=== PATIENT | female | born 1965 | race Caucasian/White ===

== ENCOUNTER 2020-01-01 12:50 | Outpatient (REF) | payer MEDICARE, MEDICAID, SELFPAY | END 2020-01-01 12:51 | disposition home or self-care (01) | LOC: HO.HMGCLDS 12:50 | PROVIDERS: PCP Internal Medicine; Visit Provider Internal Medicine | DX: Z13.89 Encounter for screening for other disorder (principal) ==

== ENCOUNTER 2020-03-25 11:58 | Outpatient (REF) | payer MEDICARE, MEDICAID, SELFPAY ==
--- NOTE | 2020-03-25 12:06 | XR_ITS ---
EXAMINATION: CHEST X-RAY CLINICAL INFORMATION: Shortness of breath COMPARISON: Previous chest x-rays most recent November 2006 TECHNIQUE: Two-view chest FINDINGS: The cardiac and mediastinal contours are stable. The lungs are clear. The lungs appear well inflated. There is no pleural effusion or pneumothorax. There are multiple old bilateral rib fractures. There are multiple thoracic vertebral body compression fractures and L1 compression fracture as described below. XR/XR chest 2V IMPRESSION: No evidence for acute disease in the chest. Well-inflated lungs. Increased thoracic kyphosis and multiple compression fractures. EXAMINATION: Thoracic spine x-ray CLINICAL INFORMATION: Shortness of breath COMPARISON: Chest CT and chest x-ray 2006 and lumbar spine x-rays most recent October 2018 TECHNIQUE: 3 views of the thoracic spine FINDINGS: There are compression fractures and post vertebroplasty changes of the T7 and T8 vertebral bodies. There is a moderate compression fracture of the T6 vertebral body. There is a moderate compression fracture of the T9 vertebral body. There is a compression fracture and post vertebroplasty change of the L1 vertebral body. There is increased thoracic kyphosis. IMPRESSION: Multiple thoracic vertebral body compression fractures and L1 vertebral body compression fracture.
--- NOTE | 2020-03-25 12:07 | XR_ITS ---
EXAMINATION: CHEST X-RAY CLINICAL INFORMATION: Shortness of breath COMPARISON: Previous chest x-rays most recent November 2006 TECHNIQUE: Two-view chest FINDINGS: The cardiac and mediastinal contours are stable. The lungs are clear. The lungs appear well inflated. There is no pleural effusion or pneumothorax. There are multiple old bilateral rib fractures. There are multiple thoracic vertebral body compression fractures and L1 compression fracture as described below. XR/XR thoracic spine 2V IMPRESSION: No evidence for acute disease in the chest. Well-inflated lungs. Increased thoracic kyphosis and multiple compression fractures. EXAMINATION: Thoracic spine x-ray CLINICAL INFORMATION: Shortness of breath COMPARISON: Chest CT and chest x-ray 2006 and lumbar spine x-rays most recent October 2018 TECHNIQUE: 3 views of the thoracic spine FINDINGS: There are compression fractures and post vertebroplasty changes of the T7 and T8 vertebral bodies. There is a moderate compression fracture of the T6 vertebral body. There is a moderate compression fracture of the T9 vertebral body. There is a compression fracture and post vertebroplasty change of the L1 vertebral body. There is increased thoracic kyphosis. IMPRESSION: Multiple thoracic vertebral body compression fractures and L1 vertebral body compression fracture.
== END 2020-03-25 11:59 | disposition home or self-care (01) ==
LOC: HO.XRAY 11:58
PROVIDERS: Absent Provider Internal Medicine; PCP Internal Medicine; Visit Provider Physical Medicine & Rehabilitation
DX: R06.02 Shortness of breath (principal)
CPT/HCPCS: 71046; 72070

== ENCOUNTER 2020-05-17 13:26 | Outpatient (REF) | payer OTHER, MEDICAID, MEDICARE, SELFPAY ==
--- NOTE | ~2020-05-17 | MR_ITS ---
EXAMINATION: MR THORACIC SPINE WITHOUT CONTRAST CLINICAL INFORMATION: Wedge compression fracture of T5-T6 and T7-T8. COMPARISON: Thoracic spine radiographs from 03/25/2020. Lumbar spine radiographs from 10/08/2018. TECHNIQUE: MRI of the thoracic spine was obtained using routine sequences without contrast. FINDINGS: There is transitional vertebral anatomy. Although not included on this exam, there appears to be lumbarization of S1. Counting from the skull base, vertebral augmentation cement is noted within the T8, T9, and L2 vertebral bodies (previously labeled as T7, T8, and L1). Chronic compression deformities of the T8 and T9 vertebral bodies with 35% and 10% loss of anterior body heights respectively. No residual marrow edema. There are also anterior wedge deformities of T7 and T10 with 60% and 40% loss of anterior body heights respectively. Minimal marrow edema persists along the superior endplate of T7. Moderate marrow edema throughout the T10 vertebral body. There is mild marrow edema within the left-sided posterior elements and spinous processes of T7 and T9. Minimal 0.1 cm retropulsion of the posterior body wall of T10. Accentuated kyphosis of the thoracic spine centered on T7. No additional suspicious marrow edema. The remaining thoracic vertebral body heights are maintained. Chronic central depressions of the superior endplates of L4 and L5. No significant abnormalities of the thoracic spinal cord. No significant abnormalities of the paraspinal musculature. Limited evaluation of the intrathoracic structures without significant abnormalities. The descending thoracic aorta is of normal contour and caliber. AXIAL SPINAL LEVELS: Mild posterior disc herniations at T7-T8, T9-T10, T12-L1, and L1-L2. Mild to moderate degenerative facet arthropathy, most notably of the lower thoracic spine. No neural foraminal or spinal canal stenosis. MR/MR thoracic spine wo con IMPRESSION: Transitional vertebral anatomy. Chronic from the skull base, vertebral augmentation cement is noted within the T8, T9, and L2 vertebral bodies (previously labeled as T7, T8, and L1). There is lumbarization of S1. Detailed level verification is recommended prior to any procedures. There are anterior wedge deformities of the T7 and T10 vertebral bodies. Moderate persistent marrow edema within the T10 vertebral body. Minimal residual marrow edema along the superior endplate of T7. There is also mild marrow edema within the left-sided posterior elements of T7 and T9. No spinal canal or neural foraminal stenosis.
[2020-05-17 14:55] LABS: Anion Gap 14 (12-20); Blood Urea Nitrogen 11 mg/dL (9-16); Calcium 9.4 mg/dL (8.4-10.2); Carbon Dioxide 29 mmol/L (22-29); Chloride 102 mmol/L (96-108); Estimated Glomerular Filt Rate > 60; Glucose Random 89 mg/dL (60-115); Potassium 4.6 mmol/L (3.3-5.1); Sodium 140 mmol/L (135-145)
== END 2020-05-17 13:27 | disposition home or self-care (01) ==
LOC: HO.MRI 13:26
PROVIDERS: PCP Internal Medicine; Visit Provider Physical Medicine & Rehabilitation
DX: S22.050D Wedge compression fracture of T5-T6 vertebra, subsequent encounter for fracture with routine healing (principal); S22.060D Wedge compression fracture of T7-T8 vertebra, subsequent encounter for fracture with routine healing
CPT/HCPCS: 36415; 72146; 80048

== ENCOUNTER 2021-04-04 10:25 | Outpatient (REF) | payer MEDICARE, MEDICAID, SELFPAY ==
[2021-04-04 12:07] LABS: Alanine Aminotransferase 53 U/L (0-31); Albumin Level 4.1 g/dL (3.5-5.0); Alkaline Phosphatase 148 U/L (39-117); Aspartate Amino Transferase 46 U/L (5-31); Bilirubin Direct < 0.2 mg/dL (0.0-0.5); Bilirubin Total 0.3 mg/dL (0.0-1.0); Total Protein 6.8 g/dL (6.5-8.0)
[2021-04-04 12:36] LABS: Vitamin D 25-OH Total 64.5 ng/mL (>30)
[2021-04-07 15:17] LABS: TS Negative Control Passed; TS Panel A 4; TS Panel B 6; TS Positive Control Passed; TSpotTB Borderline (Negative)
== END 2021-04-04 10:26 | disposition home or self-care (01) ==
LOC: HO.HMGCLDS 10:25
PROVIDERS: Visit Provider Internal Medicine
DX: Z11.1 Encounter for screening for respiratory tuberculosis (principal); E55.9 Vitamin D deficiency, unspecified; R74.8 Abnormal levels of other serum enzymes
CPT/HCPCS: 36415; 80076; 82306; 86481

== ENCOUNTER 2021-08-04 15:44 | Emergency (ER) | payer MEDICARE, MEDICAID, SELFPAY ==
--- NOTE | ~2021-08-04 | XR_ITS ---
EXAMINATION: XR FOOT, RIGHT CLINICAL INFORMATION: Right lateral metatarsal pain COMPARISON: None TECHNIQUE: AP, lateral, and oblique views of the right foot. FINDINGS: The bones and soft tissues are normal. No fracture. Alignment is anatomic. Joint spaces are maintained. XR/XR foot RT min 3V IMPRESSION: No acute bony abnormality.
[2021-08-04 15:59] VITALS: BP 123/67; PULSE 90; RESP 16; TEMP 36.6; O2SAT 99; BMI 18.8
--- NOTE | 2021-08-04 18:26 | ED.GENADULT ---
HPI - General Adult General Chief complaint: Skin/Abscess/Foreign Body Stated complaint: R foot wound Time Seen by Provider: 08/04/21 16:23 Source: patient Mode of arrival: other ( uses cane at baseline) Limitations: no limitations History of Present Illness HPI narrative: 56-year-old female who appears older than her stated age presents for pain and swelling to right foot that started last night. no trauma. Patient is concerned because she has redness and swelling on her right lateral foot with a blood blister under her right pinky toe. No fevers. Related Data Previous Rx's Medication Instructions Recorded cephalexin 500 mg capsule 500 mg PO QID 7 Days #28 cap 08/04/21 Allergies Allergy/AdvReac Type Severity Reaction Status Date / Time acetaminophen [From PERCOCET] Allergy Unknown HIVES Unverified 11/19/19 15:03 gabapentin Allergy Unknown SWELLING Unverified 11/19/19 15:03 iodine Allergy Unknown IVP Unverified 11/19/19 15:03 CONTRAST codeine Allergy Itching Verified 08/04/21 16:02 Review of Systems Constitutional: Constitutional: Denies body ache(s), Denies chills, Denies fatigue, Denies fever(s), Denies headache(s), Denies malaise and Denies weakness Eyes: Eyes: Denies diplopia ENT: Denies vertigo, Denies dizziness, Denies headache(s) and Denies throat swelling Cardiovascular: Cardiovascular: Denies chest pain, Denies syncope, Denies leg edema, Denies lightheadedness, Denies Loss of Consciousness, Denies palpitations and Denies dyspnea Respiratory: Respiratory: Denies chest congestion, Denies cough and Denies dyspnea Gastrointestinal: Gastrointestinal: Denies abdominal pain, Denies hematochezia, Denies constipation, Denies diarrhea and Denies vomiting Musculoskeletal: Musculoskeletal: Reports other ( Foot pain) Integumentary/Breasts: Skin/Breast: Reports erythema, Reports skin pain and Reports skin swelling Neurologic: Denies confusion, Denies vertigo, Denies dizziness, Denies syncope, Denies headache(s) and Denies weakness Psychiatric: Psychiatric: Denies anxiety, Denies confusion and Denies depression Endocrine: Endocrine: Denies fatigue and Denies palpitations Allergic/Immunologic: Allergic/Immunologic: Denies throat swelling PMF Social History Social History Advance Directives: No Advance Directives Information Provided: Yes Physical Exam ED Vital Signs: Vital Signs - 24 hr 08/04/21 15:59 Temperature 97.8 F Pulse Rate 90 Respiratory Rate 16 Blood Pressure 123/67 Pulse Oximetry 99 BMI result Body Mass Index 18.8 Const General: No confusion Nutritional Appearance: well nourished Orientation/consciousness: No confusion Limitations: no limitations Eyes Conjunctivae: conjunctivae normal Pupils: Equal, round and reactive pupils present EOM: EOMs intact bilaterally Neck Neck: Yes full ROM, Yes no lymphadenopathy and Yes supple Resp Effort & Inspection: normal respiratory effort and able to speak in complete sentences Auscultation: clear to auscultation bilaterally, no crackles, no rales, no rhonchi and no wheezes Cardio Rate: regular rate Rhythm: regular rhythm Heart sounds: S1 normal heart sound present and S2 normal heart sound present GI Inspection: Yes normal to inspection Palpation (GI): Soft to palpation, nontender, no guarding and not rigid Percussion: Yes normal to percussion Auscultation: normal bowel sounds Skin Other: redness, swelling, warmth to right lateral foot with 1 cm blood blister under right pinky toe Neuro General: No confusion Cranial nerves: Yes Equal, round and reactive pupils present Extrem Right lower extremity: full ROM, normal capillary refill, no joint enlargement and foot Details: normal capillary refill, tenderness Location: of the lateral foot Location: distally, toes with normal ROM and warmth; Negative for no edema, no abrasion, no laceration and no ecchymosis; No no cyanosis and no edema Psych Appearance: grossly normal Affect: normal affect Attitude: cooperative Thought process: Normal thought process present Course Course Course Narrative: a 56-year-old female presents for atraumatic right foot pain. On exam, patient has intact lower extremity sensation, pulses, motor strength. Patient has a 1 cm blood blister under right pinky toe on plantar surface, patient is tender over the lateral aspect of her right foot, skin is red and warm. FINDINGS: The bones and soft tissues are normal. No fracture. Alignment is anatomic. Joint spaces are maintained.? XR/XR foot RT min 3V IMPRESSION: No acute bony abnormality. Will treat as a cellulitis. Counseled patient to return if symptoms are not resolving within the next 3 days. Discharge Plan Discharge Clinical Impression: Cellulitis Patient Disposition: Home, Self-Care Instructions: Cellulitis (ED) Additional Instructions: please use your walking boot if it helps with your pain. You do not have any fracture in your foot. I think this is a cellulitis. If this does not get better by the end of the weekend, please return to be seen on Saturday. Please return sooner if you have worsening pain, fevers, or any new or worsening symptoms Prescriptions: New cephalexin 500 mg capsule 500 mg PO QID 7 Days Qty: 28 0RF
== END 2021-08-04 18:57 | disposition home or self-care (01) ==
PROVIDERS: Emergency Provider Internal Medicine; PCP Internal Medicine
DX: L03.115 Cellulitis of right lower limb (principal)
CPT/HCPCS: 73630; 99282; 99283

== ENCOUNTER 2021-09-09 14:05 | Emergency (ER) | payer OTHER, SELFPAY ==
[2021-09-09 14:25] VITALS: BP 101/50; PULSE 81; RESP 18; TEMP 36.8; O2SAT 97; BMI 18.8
[2021-09-09 15:24] LABS: Hemoglobin 10.3 g/dl (12.0-16.0); Mean Corpuscular HGB Conc 32.2 g/dl (31.0-35.0); Mean Corpuscular Hemoglobin 30.4 pg (27.0-33.0); Mean Corpuscular Volume 94.4 fL (80.0-98.0); Mean Platelet Volume 9.3 fL (9.4-12.3); Platelet Count 299 X10*3/uL (160-400); Red Blood Count 3.39 X10*6/uL (4.20-5.50); Red Cell Distribution Width 14.1 % (11.0-16.0); White Blood Count 7.4 X10*3/uL (4.8-10.8)
[2021-09-09 15:37] LABS: Anion Gap 10 (12-20); Blood Urea Nitrogen 9 mg/dL (9-16); Calcium 8.9 mg/dL (8.4-10.2); Carbon Dioxide 28 mmol/L (22-29); Chloride 105 mmol/L (96-108); Creatinine Clr Calc Pharmacy 57.7; Estimated Glomerular Filt Rate > 60; Glucose Random 80 mg/dL (60-115); Potassium 4.9 mmol/L (3.3-5.1); Sodium 138 mmol/L (135-145)
[2021-09-09 15:42] LABS: B Type Natriuretic Peptide 30 pg/mL (<100)
== END 2021-09-09 17:35 | disposition left against medical advice (07) ==
PROVIDERS: Emergency Provider Emergency Medicine; PCP Internal Medicine
DX: L03.116 Cellulitis of left lower limb (principal)
CPT/HCPCS: 36415; 80048; 83880; 85027; 99281; 99282; 99283

== ENCOUNTER 2021-10-27 15:25 | Outpatient (REF) | payer MEDICARE, MEDICAID, SELFPAY ==
[2021-10-27 16:28] LABS: MANUAL DIFF FLAG NO
[2021-10-27 16:33] LABS: Basophils Absolute Auto 0.1 X10*3/uL (0.0-0.2); Basophils Percent Auto 0.8 % (0-2); Eosinophils Absolute Auto 0.2 X10*3/uL (0.0-0.4); Eosinophils Percent Auto 3.8 % (0-4); Hematocrit 33.4 % (37.0-47.0); Hemoglobin 10.8 g/dl (12.0-16.0); Imm Gran Abs Auto 0.02 X10*3/uL (0.00-0.03); Imm Gran Pct Auto 0.3 % (0.0-0.4); Lymphocytes Absolute Auto 2.7 X10*3/uL (1.2-4.9); Lymphocytes Percent Auto 41.7 % (20-40); Mean Corpuscular HGB Conc 32.3 g/dl (31.0-35.0); Mean Corpuscular Hemoglobin 30.3 pg (27.0-33.0); Mean Corpuscular Volume 93.8 fL (80.0-98.0); Mean Platelet Volume 9.8 fL (9.4-12.3); Monocytes Absolute Auto 0.4 X10*3/uL (0.1-1.2); Monocytes Percent Auto 6.4 % (2-11); Platelet Count 277 X10*3/uL (160-400); Red Blood Count 3.56 X10*6/uL (4.20-5.50); Red Cell Distribution Width 13.7 % (11.0-16.0); White Blood Count 6.4 X10*3/uL (4.8-10.8)
[2021-10-27 17:30] LABS: Erythrocyte Sedimentation Rate 8 MM/HR (0-20)
== END 2021-10-27 15:26 | disposition home or self-care (01) ==
LOC: HO.HMGCLDS 15:25
PROVIDERS: Visit Provider Physical Medicine & Rehabilitation
DX: L03.115 Cellulitis of right lower limb (principal)
CPT/HCPCS: 36415; 85025; 85652; 86140

== ENCOUNTER 2022-02-15 10:18 | Outpatient (REF) | payer MEDICARE, MEDICAID, SELFPAY ==
[2022-02-15 14:05] LABS: Alanine Aminotransferase 13 U/L (0-31); Albumin Level 4.2 g/dL (3.5-5.0); Alkaline Phosphatase 126 U/L (39-117); Anion Gap 10 (12-20); Aspartate Amino Transferase 18 U/L (5-31); Bilirubin Total 0.4 mg/dL (0.0-1.0); Blood Urea Nitrogen 11 mg/dL (9-16); Calcium 9.3 mg/dL (8.4-10.2); Carbon Dioxide 29 mmol/L (22-29); Chloride 105 mmol/L (96-108); Cholesterol 133 mg/dL; Estimated Glomerular Filt Rate > 60; Glucose Random 77 mg/dL (60-115); HDL Cholesterol 37 mg/dL; LDL Cholesterol Calculated 82 mg/dl; Potassium 4.7 mmol/L (3.3-5.1); Sodium 139 mmol/L (135-145); Triglycerides 73 mg/dL; Vitamin D 25-OH Total 53.1 ng/mL (>30)
[2022-02-15 14:11] LABS: Vitamin B12 429 pg/mL (200-900)
== END 2022-02-15 10:19 | disposition home or self-care (01) ==
LOC: HO.HMGCLDS 10:18
PROVIDERS: PCP Internal Medicine; Visit Provider Internal Medicine
DX: E78.2 Mixed hyperlipidemia (principal); E53.9 Vitamin B deficiency, unspecified; E55.9 Vitamin D deficiency, unspecified
CPT/HCPCS: 36415; 80053; 80061; 82306; 82607

== ENCOUNTER 2022-05-21 12:45 | Outpatient (REF) | payer MEDICARE, MEDICAID, SELFPAY ==
--- NOTE | ~2022-05-21 | XR_ITS ---
EXAMINATION: XR LUMBOSACRAL SPINE CLINICAL INFORMATION: Radiculopathy. Lumbar fusion. COMPARISON: None available. TECHNIQUE: Three views of the lumbosacral spine. FINDINGS: There is normal lumbar lordosis with cages at the L4-L5 disc level for disc fusion. There is cement augmentation along the L1 vertebra. No compression fracture, lytic or sclerotic process seen. The paravertebral soft tissues are normal. XR/XR lumbar spine 2-3V IMPRESSION: 1. L4-L5 disc fusion with cages. 2. Cement augmentation of L1 vertebra. No acute fracture or lytic process seen.
== END 2022-05-21 12:46 | disposition home or self-care (01) ==
LOC: HO.HMGCX 12:45
PROVIDERS: PCP Internal Medicine; Visit Provider Physical Medicine & Rehabilitation
DX: M54.16 Radiculopathy, lumbar region (principal); M43.26 Fusion of spine, lumbar region
CPT/HCPCS: 72100

== ENCOUNTER 2022-06-14 11:11 | Outpatient (REF) | payer MEDICARE, MEDICAID, SELFPAY ==
--- NOTE | ~2022-06-14 | XR_ITS ---
EXAMINATION: XR BILATERAL HIPS WITH AP PELVIS CLINICAL INFORMATION: Right hip, left hip pain. COMPARISON: None available. TECHNIQUE: AP view of the pelvis and 2 views of each hip were obtained. FINDINGS: AP PELVIS: There is normal symmetry of both hip joints and SI joints. No visible acute fracture, dislocation seen. There are cages at L4-L5 disc for fusion. RIGHT HIP: There is maintained right hip joint space without bony erosive changes. No visible acute fracture, dislocation or subluxation seen. The soft tissues are normal. LEFT HIP: The left hip joint space is maintained. No bony erosive changes. No spurring. No loose bodies or soft tissue abnormality. XR/XR hips AKBAR min 3V IMPRESSION: Unremarkable AP pelvis and bilateral hips.
== END 2022-06-14 11:12 | disposition home or self-care (01) ==
LOC: HO.HMGCX 11:11
PROVIDERS: PCP Internal Medicine; Visit Provider Physical Medicine & Rehabilitation
DX: M25.551 Pain in right hip (principal); M25.552 Pain in left hip
CPT/HCPCS: 73522

== ENCOUNTER 2022-10-04 11:52 | Emergency (ER) | payer MEDICARE, MEDICAID, SELFPAY ==
--- NOTE | ~2022-10-04 | XR_ITS ---
EXAMINATION: XR THORACIC SPINE CLINICAL INFORMATION: Pain. History of prior surgeries. COMPARISON: March 25, 2020 and MRI of May 17, 2020 TECHNIQUE: AP lateral and swimmer's views of the thoracic spine. FINDINGS: Patient is status post previous kyphoplasty at the T7, T8, and L1 vertebral body levels. Since prior study there has been a superior endplate compression fracture of T12 without significant loss of height. There also been central endplate compression fractures/Schmorl's nodes of T10. Stable wedge fractures are seen at the T6 and T9 vertebral body levels. Kyphosis is present. Old healed bilateral rib fractures evident. XR/XR thoracic spine 3V IMPRESSION: Interval development of fractures without significant loss of height of T10 and T12 since prior examinations of March 25, 2020 and May 17, 2020.
--- NOTE | 2022-10-04 11:58 | ED_ITS ---
HPI - General Adult General Chief complaint: Back Pain/Injury Stated complaint: Severe Back Pain Time Seen by Provider: 10/04/22 12:10 Source: patient, RN notes reviewed and old records reviewed Mode of arrival: ambulatory History of Present Illness HPI narrative: 57-year-old female with past medical history of chronic back pain s/p kyphoplasty, on multiple medications followed by pain management, presenting to the ED complaining of acute on chronic thoracic back pain x 5 days. Patient states feels like her vertebrae is out of place/slipped. Denies known injury, trauma/fall or heavy lifting. Denies radiation of pain down lower extremities, numbness/tingling, weakness, urinary incontinence/retention, fever. Patient takes Oxycodone, Soma, Levorphanol, and Belbuca regularly, without relief. States called her pain management doctor however was not able to get in until the . Related Data Previous Rx's Medication Instructions Recorded cephalexin 500 mg capsule 500 mg PO QID 7 days #28 caps 08/04/21 lidocaine 5 % topical patch 1 patch topical DAILY PRN pain #30 10/04/22 (Lidoderm) ea prednisone 20 mg tablet 40 mg PO DAILY 5 days #10 tabs 10/04/22 Allergies Allergy/AdvReac Type Severity Reaction Status Date / Time acetaminophen [From PERCOCET] Allergy Unknown HIVES Verified 10/04/22 11:59 gabapentin Allergy Unknown SWELLING Verified 10/04/22 11:59 iodine Allergy Unknown IVP Verified 10/04/22 11:59 CONTRAST codeine Allergy Itching Verified 10/04/22 11:59 Review of Systems Review of Systems: Constitutional: No Fever, No Chills ENT/Mouth: No Ear Pain, No Nasal Congestion, No sore throat, No Rhinorrhea, No S wallowing Difficulty Cardiovascular: No Chest Pain, No SOB Respiratory: No Cough, No Sputum, No Wheezing Gastrointestinal: No Nausea, No Vomiting, No Abdominal pain Genitourinary: No Dysuria, No Urinary Frequency, No Hematuria, No Urinary Incontinence/retention, No Flank Pain Musculoskeletal: + joint pain, No Myalgias, No Joint Swelling Skin: No Skin Lesions, No rash Neuro: No Weakness, No Numbness, No Paresthesias Yes all other systems are reviewed and are negative Constitutional: Constitutional: Reports as per HPI Neurologic: Denies Sensory deficit (Neuro) PMFSH Past Medical History Attestation statement: The following information was validated with the patient. Source: old records reviewed Social History Social History Advance Directives: No Advance Directives Information Provided: No Physical Exam ED Vital Signs: Vital Signs - 24 hr 10/04/22 12:00 Temperature 98 F Pulse Rate 83 Respiratory Rate 19 Blood Pressure 123/82 Pulse Oximetry 99 Oxygen Delivery Method Room Air BMI result Body Mass Index 18.3 Const General: cooperative, healthy appearing and no acute distress Orientation/consciousness: patient oriented x3 Limitations: no limitations HENMT Head: Yes normal to inspection and Yes atraumatic Ears: hearing grossly normal bilaterally General nose exam: Normal external nose present Face and sinus: Yes normal facial exam Eyes General: appearance normal, both eyes and all related structures EOM: EOMs intact bilaterally Neck Neck: Yes normal visual inspection and Yes no meningeal signs Resp Effort & Inspection: normal respiratory effort and no respiratory distress Cardio Rate: regular rate Peripheral pulses: Peripheral pulses 2+ throughout GI Inspection: Yes normal to inspection Palpation (GI): Soft to palpation, nontender, no guarding and not rigid General: Yes no CVA tenderness Back/Spine/Pelvis Other: No midline cervical/thoracic/lumbar spinous tenderness/step-off or deformity. + bilateral thoracic paraspinal/MSK tenderness to palpation reproducing subjective complaint. No flail chest/evidence of trauma or erythema Back: no CVA tenderness Skin Rashes: no rashes Wounds: no wounds Neuro Other: Strength intact throughout. No saddle anesthesia. Sensation intact to light touch. Neurovascular intact distally General: patient oriented x3, gait normal (Ambulating with slow steady gait with cane), tone normal, moves all extremities and no meningeal signs Gait exam (Neuro): Normal gait present Motor exam (neuro): 5/5 motor strength present throughout and Normal motor muscle tone present throughout Sensory Exam: No Sensory deficit (Neuro) Extrem General: Yes normal to inspection Course Course Course Narrative: This is a rapid medical exam: Additional HPI, ROS, PE not included below will be deferred to primary provider. Patient is a 57-year-old female presenting to the emergency department with complaint of thoracic back pain since Saturday. Patient denies fall or other trauma. History of surgery at L4/L5 with subsequent kyphoplasties. Denies any numbness or tingling to extremities. Has taken prescribed oxycodone, soma, and muscle relaxers at home without relief. Plan: x-ray XR thoracic spine 3V IMPRESSION: Interval development of fractures without significant loss of height of T10 and T12 since prior examinations of March 25, 2020 and May 17, 2020. >Results discussed with patient, requesting prednisone, Lidoderm patch, and discharge has an appointment at 3:30PM. Discussed worrisome signs and symptoms and strict return precautions, and when to return to the emergency department. They verbalized understanding and feel safe for discharge at this time. Recommended close follow-up with pain management and MRI outpatient Medications Administered Discontinued Medications Generic Name Dose Route Start Last Admin Trade Name Freq PRN Reason Stop Dose Admin Lidocaine 1 patch 10/04/22 12:39 10/04/22 12:46 Lidocaine 4 % Patch Adh..Patch TRANSDERMA 10/04/22 12:40 1 patch ONCE ONE Administration Protocol Medical Decision Making Medical Decision Making MDM Narrative: 57-year-old female with past medical history of chronic back pain s/p kyphoplasty, on multiple medications followed by pain management, presenting to the ED complaining of acute on chronic thoracic back pain x 5 days. On exam vital signs stable, NAD, nontoxic appearing, physical exam as above, no midline spinous tenderness through or red flag symptoms, ambulating with slow steady gait. No evidence of trauma. No saddle anesthesia. Concern for acute on chronic back pain vs disc herniation vs MSK pain/strain/past pain. Low suspicion for cauda equina/cord compression, epidural abscess, dissection or renal stone Plan: X-ray, Lidoderm patch Discussed with patient she is on multiple medications will not be given any additional opiates at this time Please refer to course for remaining clinical decision making, interpretation of labs/imaging results, and discussions with consultants and/or family members. Differential Diagnosis Differential Diagnoses: The differential diagnosis associated with the presentation includes As above Admission/Observation Consideration of admission/observation: Escalation of care including admission/observation considered Independent Interpretation I performed an independent interpretation of an: Plain X-Ray Radiology Impression Discussion of test interpretation with radiology: I have reviewed the radiologist's reading. External Record Review External record reviewed: Inpatient record, Office record, Outpatient record, Prior outpatient labs, Prior outpatient radiology, Primary care record and Outside ED record Tests considered The following testing was considered but not selected: As above Prescription Management I considered prescription management with: Pain Medication Discharge Plan Discharge Clinical Impression: T12 compression fracture, Compression fracture of T10 vertebra Patient Disposition: Home, Self-Care Instructions: Vertebral Compression Fracture (ED) Additional Instructions: Continue taking your current prescribed pain medications and muscle relaxers Your x-ray does show new compression fractures of T10 and T12 which are new from prior exams from 2020 Prednisone as a steroid which did help with pain/inflammation, take as prescribed In addition use Lidoderm patches Please call your PCP and pain management doctor for close follow-up, you will likely need an MRI Prescriptions: New lidocaine [Lidoderm] 5 % adhesive patch,medicated 1 patch topical DAILY MDD remove after 12 hours PRN (Reason: pain) Qty: 30 0RF Rx Instructions: leave on most painful area for up to 12 hrs prednisone 20 mg tablet 40 mg PO DAILY 5 Days Qty: 10 0RF No Action cephalexin 500 mg capsule 500 mg PO QID 7 Days Qty: 28 0RF Referrals: Samantha Bermudez MD [Primary Care Provider] - 5 days Interventions: ED Discharge Assessment Last Done: 10/04/22 14:39 Discharge Date/Time: 10/04/22 14:41
[2022-10-04 12:00] VITALS: BP 123/82; PULSE 83; RESP 19; TEMP 36.6; O2SAT 99; BMI 18.3
[2022-10-04] MEDS: Lidocaine 4 % Patch ADH..PATCH 1 PATCH TRANSDERMA (12:46)
== END 2022-10-04 14:41 | disposition home or self-care (01) ==
PROVIDERS: Emergency Provider Student in an Organized Health Care Education/Training Program; PCP Internal Medicine
DX: M48.54XA Collapsed vertebra, not elsewhere classified, thoracic region, initial encounter for fracture (principal); Z79.899 Other long term (current) drug therapy
CPT/HCPCS: 72072; 99283

== ENCOUNTER 2023-10-15 13:41 | Outpatient (REF) | payer MEDICARE, MEDICAID, SELFPAY ==
[2023-10-15 16:01] LABS: MANUAL DIFF FLAG NO
[2023-10-15 16:21] LABS: Basophils Percent Auto 0.3 % (0-2); Eosinophils Absolute Auto 0.1 X10*3/uL (0.0-0.4); Eosinophils Percent Auto 0.5 % (0-4); Hematocrit 35.2 % (37.0-47.0); Hemoglobin 11.7 g/dl (12.0-16.0); Imm Gran Abs Auto 0.08 X10*3/uL (0.00-0.03); Imm Gran Pct Auto 0.7 % (0.0-0.4); Lymphocytes Absolute Auto 2.6 X10*3/uL (1.2-4.9); Lymphocytes Percent Auto 22.5 % (20-40); Mean Corpuscular HGB Conc 33.2 g/dl (31.0-35.0); Mean Corpuscular Hemoglobin 30.8 pg (27.0-33.0); Mean Corpuscular Volume 92.6 fL (80.0-98.0); Mean Platelet Volume 9.7 fL (9.4-12.3); Monocytes Absolute Auto 0.7 X10*3/uL (0.1-1.2); Monocytes Percent Auto 5.6 % (2-11); Neutrophils Absolute Auto 8.3 x10*3/uL (2.0-8.3); Neutrophils Percent Auto 70.4 % (45-73); Platelet Count 414 X10*3/uL (160-400); Red Cell Distribution Width 13.6 % (11.0-16.0); White Blood Count 11.7 X10*3/uL (4.8-10.8)
[2023-10-15 16:36] LABS: Alanine Aminotransferase 14 U/L (0-31); Albumin Level 4.1 g/dL (3.5-5.0); Alkaline Phosphatase 155 U/L (39-117); Anion Gap 12 (12-20); Aspartate Amino Transferase 14 U/L (5-31); Bilirubin Total 0.2 mg/dL (0.0-1.0); Blood Urea Nitrogen 17 mg/dL (9-16); Calcium 9.1 mg/dL (8.4-10.2); Carbon Dioxide 27 mmol/L (22-29); Chloride 100 mmol/L (96-108); Estimated Glomerular Filt Rate > 60; Glucose Random 89 mg/dL (60-115); Lipase 50 U/L (8-78); Potassium 4.1 mmol/L (3.3-5.1); Sodium 135 mmol/L (135-145)
[2023-10-15 16:40] LABS: Calcium 9.1 mg/dL (8.4-10.2)
[2023-10-15 16:49] LABS: Vitamin D 25-OH Total 73.9 ng/mL (>30)
[2023-10-15 17:20] LABS: Parathyroid Hormone Intact 84.7 pg/mL (8.7-77.1)
[2023-10-19 15:52] LABS: Alkaline Phosphatase Bone 14.5 mcg/L (5.6-29.0)
== END 2023-10-15 13:42 | disposition home or self-care (01) ==
LOC: HO.HMGCLDS 13:41
PROVIDERS: PCP Internal Medicine; Referring Provider Obstetrics & Gynecology Reproductive Endocrinology; Visit Provider Physician Assistant
DX: M81.0 Age-related osteoporosis without current pathological fracture (principal); R10.13 Epigastric pain
CPT/HCPCS: 36415; 80053; 82306; 82310; 83690; 83970; 84075; 85025

== ENCOUNTER 2024-12-10 13:31 | Outpatient (REF) | payer MEDICARE, MEDICAID, SELFPAY ==
[2024-12-10 16:49] LABS: MANUAL DIFF FLAG NO
[2024-12-10 16:53] LABS: Hematocrit 28.2 % (37.0-47.0); Hemoglobin 8.7 g/dl (12.0-16.0); Imm Gran Abs Auto 0.02 X10*3/uL (0.00-0.03); Imm Gran Pct Auto 0.4 % (0.0-0.4); Lymphocytes Absolute Auto 1.7 X10*3/uL (1.2-4.9); Mean Corpuscular HGB Conc 30.9 g/dl (31.0-35.0); Mean Corpuscular Hemoglobin 29.2 pg (27.0-33.0); Mean Corpuscular Volume 94.6 fL (80.0-98.0); NRBC Abs Auto 0.000 X10*3/uL (0.0-0.012); NRBC Pct Auto 0.0 /100WBC (0.0-0.2); Platelet Count 386 X10*3/uL (160-400); Red Blood Count 2.98 X10*6/uL (4.20-5.50); White Blood Count 5.6 X10*3/uL (4.8-10.8)
[2024-12-10 17:20] LABS: Alanine Aminotransferase 34 U/L (0-31); Albumin Level 3.4 g/dL (3.5-5.0); Alkaline Phosphatase 227 U/L (39-117); Anion Gap 10 (12-20); Aspartate Amino Transferase 78 U/L (5-31); Blood Urea Nitrogen 11 mg/dL (9-16); Calcium 8.3 mg/dL (8.4-10.2); Carbon Dioxide 32 mmol/L (22-29); Chloride 103 mmol/L (96-108); Estimated Glomerular Filt Rate > 60; Iron 86 mcg/dL (30-160); Percent Iron Saturation 40 % (15-50); Potassium 4.7 mmol/L (3.3-5.1); Sodium 140 mmol/L (135-145); Total Iron Binding Capacity 216 mcg/dL (228-428); Total Protein 6.2 g/dL (6.5-8.0); Unsaturated Iron Binding 130 ug/dL
[2024-12-10 17:30] LABS: Ferritin 67 ng/mL (10-250)
== END 2024-12-10 13:32 | disposition home or self-care (01) ==
LOC: HO.HMGCLDS 13:31
PROVIDERS: PCP Internal Medicine; Visit Provider Internal Medicine
DX: E87.5 Hyperkalemia (principal); D64.9 Anemia, unspecified; R74.8 Abnormal levels of other serum enzymes
CPT/HCPCS: 36415; 80053; 82728; 83540; 85025